=== PATIENT | female | born 2000 | race African-American/Black ===

== ENCOUNTER 2022-11-11 12:25 | Emergency (ER) | payer MEDICAID ==
[~2022-11-11] VITALS: Ht 149.9 cm; Wt 63.6 kg
[2022-11-11 12:29] VITALS: BP 114/67
[2022-11-11 13:24] LABS: HEMOGLOBIN. 11.9 g/dL (12.0-16.0); MEAN CORPUSCULAR HEMOGLOBIN 30.1 pg (28.0-32.0); MEAN CORPUSCULAR VOLUME 88.5 fL (81.0-99.0); MEAN PLATELET VOLUME 8.7 fl (7.4-10.4); PLATELET 326 x1000/uL (130-400); RED BLOOD CELL COUNT 3.96 mill/uL (4.2-5.4); RED CELL DISTRIBUTION WIDTH 12.4 % (11.6-14.6)
[2022-11-11 13:28] LABS: CHLORIDE 97 mEq/L (98-107)
[2022-11-11 13:50] LABS: PLATELET ESTIMATE NORMAL
[2022-11-11] MEDS ORDERED: KETOROLAC 15MG/ML VIAL IV ONE (14:45)
[2022-11-11] MEDS ORDERED: ONDANSETRON HCL 4MG/2ML INJ IV ONE (14:45)
[2022-11-11] MEDS ORDERED: SODIUM CHLORIDE 0.9% 1,000 ML IV ONE (14:45)
[2022-11-11] MEDS ORDERED: SODIUM CHLORIDE 0.9% 1000ML BAG (SEPSIS BOLUS) IV NR (15:30)
[2022-11-11] MEDS ORDERED: CEPH500T MT (23:55)
== END 2022-11-11 16:46 | disposition left against medical advice (07) ==
LOC: ER 12:25
DX: R10.31 Right lower quadrant pain (principal); D72.829 Elevated white blood cell count, unspecified
CPT/HCPCS: 36415; 80053; 83690; 84145; 85025; 99283; J7030

== ENCOUNTER 2022-11-11 19:04 | Emergency (ER) | payer MEDICAID ==
[~2022-11-11] VITALS: Ht 149.9 cm; Wt 63.5 kg
[2022-11-11] MEDS ORDERED: ONDANSETRON HCL 4MG/2ML INJ IV STA (19:31)
[2022-11-11] MEDS ORDERED: SODIUM CHLORIDE 0.9% 1,000 ML IV ONE ×2 (19:45→22:45)
[2022-11-11 20:04] LABS: INR 1.1; PROTHROMBIN TIME 11.8 sec (9.6-11.0)
[2022-11-11 20:09] LABS: HCG SCREEN NEGATIVE
[2022-11-11] MEDS ORDERED: IOHEXOL-300 100 ML BOTTLE ONE (21:55)
[2022-11-11 22:00] VITALS: BP 137/86
[2022-11-11 23:23] LABS: CLARITY URINE CLOUDY (CLEAR); COLOR URINE YELLOW (YELLOW); KETONES URINE 3+ (NEGATIVE); LEUKOCYTE ESTERASE URINE 2+ (NEGATIVE); NITRITE URINE POSITIVE (NEGATIVE); OCCULT BLOOD URINE 2+ (NEGATIVE); PROTEIN URINE 2+ (NEGATIVE); SPECIFIC GRAVITY URINE 1.036 (1.005-1.030)
[2022-11-11] MEDS ORDERED: CEPH500T MT (23:55)
[2022-11-12] MEDS ORDERED: CEFTRIAXONE 1GM PREMIX 50 ML IV ONE
== END 2022-11-12 00:49 | disposition home or self-care (01) ==
LOC: ER 19:04
DX: N12 Tubulo-interstitial nephritis, not specified as acute or chronic (principal); K46.9 Unspecified abdominal hernia without obstruction or gangrene
CPT/HCPCS: 36415; 74177; 81003; 81025; 83690; 84703; 85610; 96361; 96365; 99285; J0696; J7030; Q9967; Z7610